=== PATIENT | male | born 1975 | race African-American/Black ===

== ENCOUNTER 2016-11-14 00:15 | Emergency (ER) | payer SELFPAY ==
[~2016-11-14] VITALS: Ht 182.9 cm; Wt 86.0 kg
[2016-11-14] MEDS ORDERED: CEFAZOLIN SODIUM 1000MG/VIAL IM ONE (06:30)
[2016-11-14 06:55] VITALS: BP 110/79
== END 2016-11-14 10:17 | disposition home or self-care (01) ==
LOC: ER 10:17
DX: T63.301A Toxic effect of unspecified spider venom, accidental (unintentional), initial encounter (principal); L03.114 Cellulitis of left upper limb; Y92.89 Other specified places as the place of occurrence of the external cause; F12.90 Cannabis use, unspecified, uncomplicated
CPT/HCPCS: 96372; 99283; J0690